=== PATIENT | female | born 1960 | race Caucasian/White ===

== ENCOUNTER 2018-02-10 10:25 | Emergency (ER) | payer OTHER ==
--- NOTE | 2018-02-10 11:01 | CPEKG ---
Heart Rate: 67 RR Interval: 896 P-R Interval: 160 QRSD Interval: 74 QT Interval: 396 QTC Interval: 418 P [place]: 54 QRS [place]: 32 T Wave [place]: 29 EKG Severity - BORDERLINE ECG - EKG Impression: SINUS RHYTHM Electronically Signed By: Jey Garcia 10-Feb-2018 11:03:42
[2018-02-10] MEDS ORDERED: NS 1,000 ML IV ONE (11:28)
[2018-02-10 11:34] LABS: PLATELET COUNT 187 10^3/uL (150-400)
--- NOTE | 2018-02-10 12:29 | EDPHY ---
H & P Time Seen by Provider: 02/10/18 11:47 HPI/ROS: CHIEF COMPLAINT: Chest pain HISTORY OF PRESENT ILLNESS: A 57-year-old woman otherwise healthy was at work today standing and developed left-sided chest pain radiating to her left arm. She felt like she had a little bit of irregular heartbeat and mildly dizzy and a little bit short of breath at the time but now feels normal. Her symptoms ended at 11:45 a.m.. Symptoms were not pleuritic or exertional, no leg swelling or leg pain, no recent travel or immobilization. Did not have near syncope or syncope. Symptoms were mild at the time and now gone. REVIEW OF SYSTEMS: Eye: no change in vision ENT: no sore throat Cardiac: HPI Pulmonary: No cough or hemoptysis Abdomen: no vomiting, diarrhea, abdominal pain, does get intermittent abdominal pain specially with prolonged sitting Musculoskeletal: No leg swelling Skin: no rash Neuro: no headache Constitutional: no fever : no urinary symptoms A comprehensive 10 point review of systems is otherwise negative aside from elements mentioned in the history of present illness. PAST MEDICAL HISTORY: Includes appendectomy, x2. Negative for diabetes, hypercholesterolemia, hypertension., heart murmur Family history: Negative for aneurysm, venous thromboembolism, premature coronary disease Social history: Negative for tobacco or cocaine, negative for travel or immobilization General Appearance: Alert and conversant, cooperative. Eyes: No scleral icterus. ENT, Mouth: Normal mucous membranes. Respiratory: Normal respiratory effort, breath sounds equal, lungs are clear to auscultation. Cardiovascular: Regular rate and rhythm. 1/6 systolic murmur. Gastrointestinal: Abdomen is soft and non tender. Neurological: Alert, face symmetric, normal motor and sensory in extremities. Skin: Warm and dry, no rashes. Musculoskeletal: No peripheral edema. No calf tenderness. Psychiatric: Not agitated. Emergency Department course/MDM: I think pulmonary embolism would be very unlikely. ACS considered but has a low heart score of 1 for age, plan for repeat troponin at 3:00 a.m. And outpatient follow-up discussed and consented. Pretest probability for pulmonary embolism is low, D-dimer negative. 1444: 2nd troponin negative, discharge if 2nd EKG normal; reviewed at 1451 normal EKG. Discussed with Cardiology and referred as outpatient this week. Smoking Status: Never smoked Constitutional: Initial Vital Signs Temperature (C) 36.5 C 02/10/18 10:27 Heart Rate 74 02/10/18 10:27 Respiratory Rate 18 02/10/18 10:27 Blood Pressure 151/95 H 02/10/18 10:27 O2 Sat (%) 95 02/10/18 10:27 O2 Delivery Mode Room Air Allergies/Adverse Reactions: No Known Allergies Allergy (Unverified 02/10/18 10:30) Home Medications: Medication Instructions Recorded NK [No Known Home Meds] 02/10/18 Medical Decision Making - Diagnostics EKG Interpretation: 12-lead EKG interpreted by me; official reading is in trace master. My interpretation is sinus rhythm no ischemic changes otherwise normal. Imaging Results: Imaging Impressions Chest X-Ray 02/10/18 12:29 Impression: Normal. Imaging: I viewed and interpreted images myself Differential Diagnosis: Differential diagnosis considered for chest pain including but not limited to myocardial ischemia, aortic dissection, pericarditis, pulmonary embolus, chest wall pain, pleural inflammation and pulmonary infectious causes. Consult/Admit Bed Type: [place] [id number] will arrange GXT next 48 hours - Data Points Laboratory Results: Laboratory Results 02/10/18 11:20 02/10/18 11:20 02/10/18 02/10/18 02/10/18 14:32 11:28 11:20 WBC RBC Hgb Hct MCV MCH MCHC RDW Plt Count MPV Neut % (Auto) Lymph % (Auto) [place] % (Auto) Eos % (Auto) Baso % (Auto) Nucleat RBC Rel Count Absolute Neuts (auto) Absolute Lymphs (auto) Absolute Monos (auto) Absolute Eos (auto) Absolute Basos (auto) Absolute Nucleated RBC Immature Gran % Immature Gran # D-Dimer < 0.27 ug/mLFEU ug/mLFEU (0.00-0.50) Sodium Potassium Chloride Carbon Dioxide Anion Gap BUN Creatinine Estimated GFR Glucose Calcium POC Troponin I 0.00 ng/mL ng/mL 0.00 ng/mL ng/mL (0.00-0.08) (0.00-0.08) 02/10/18 02/10/18 11:20 11:20 WBC 8.02 10^3/uL 10^3/uL (3.80-9.50) RBC 4.99 10^6/uL 10^6/uL (4.18-5.33) Hgb 14.3 g/dL g/dL (12.6-16.3) Hct 44.2 % % (38.0-47.0) MCV 88.6 fL fL (81.5-99.8) MCH 28.7 pg pg (27.9-34.1) MCHC 32.4 g/dL g/dL (32.4-36.7) RDW 13.5 % % (11.5-15.2) Plt Count 187 10^3/uL 10^3/uL (150-400) MPV 11.1 fL fL (8.7-11.7) Neut % (Auto) 54.5 % % (39.3-74.2) Lymph % (Auto) 34.0 % % (15.0-45.0) [place] % (Auto) 6.9 % % (4.5-13.0) Eos % (Auto) 3.5 % % (0.6-7.6) Baso % (Auto) 0.9 % % (0.3-1.7) Nucleat RBC Rel Count 0.0 % % (0.0-0.2) Absolute Neuts (auto) 4.37 10^3/uL 10^3/uL (1.70-6.50) Absolute Lymphs (auto) 2.73 10^3/uL 10^3/uL (1.00-3.00) Absolute Monos (auto) 0.55 10^3/uL 10^3/uL (0.30-0.80) Absolute Eos (auto) 0.28 10^3/uL 10^3/uL (0.03-0.40) Absolute Basos (auto) 0.07 10^3/uL 10^3/uL (0.02-0.10) Absolute Nucleated RBC 0.00 10^3/uL 10^3/uL (0-0.01) Immature Gran % 0.2 % % (0.0-1.1) Immature Gran # 0.02 10^3/uL 10^3/uL (0.00-0.10) D-Dimer Sodium 142 mEq/L mEq/L (135-145) Potassium 4.3 mEq/L mEq/L (3.3-5.0) Chloride 104 mEq/L mEq/L (97-110) Carbon Dioxide 26 mEq/l mEq/l (22-31) Anion Gap 12 mEq/L mEq/L (8-16) BUN 19 mg/dL mg/dL (7-23) Creatinine 0.7 mg/dL mg/dL (0.6-1.0) Estimated GFR > 60 Glucose 84 mg/dL mg/dL (70-100) Calcium 9.7 mg/dL mg/dL (8.5-10.4) POC Troponin I Medications Given: Discontinued Medications Sodium Chloride (Ns) 1,000 mls @ 0 mls/hr IV ONCE ONE PRN Reason: Wide Open Stop: 02/10/18 11:29 Last Admin: 02/10/18 11:29 Dose: 1,000 mls Point of Care Test Results: Chemistry 02/10/18 02/10/18 14:32 11:28 POC Troponin I 0.00 ng/mL ng/mL 0.00 ng/mL ng/mL (0.00-0.08) (0.00-0.08) Departure - Departure Disposition: Home, Routine, Self-Care Clinical Impression: Chest pain Qualifiers: Chest pain type: unspecified Qualified Code(s): R07.9 - Chest pain, unspecified Condition: Good Instructions: Chest Pain (ED) Referrals: Yoly Myers MD [Medical Doctor] - 1-2 days without fail (Dr. Myers's office will call you today to arrange treadmill testing as an outpatient.)
--- NOTE | 2018-02-10 14:51 | CPEKG ---
Heart Rate: 66 RR Interval: 909 P-R Interval: 168 QRSD Interval: 76 QT Interval: 396 QTC Interval: 415 P [place]: 50 QRS [place]: 31 T Wave [place]: 25 EKG Severity - NORMAL ECG - EKG Impression: SINUS RHYTHM Electronically Signed By: Magdy Plunkett 10-Feb-2018 15:02:40
[2018-02-10 14:55] VITALS: BP 115/71
== END 2018-02-10 15:02 | disposition home or self-care (01) ==
DX: R07.9 Chest pain, unspecified (principal); R42 Dizziness and giddiness
CPT/HCPCS: 84484-PO